=== PATIENT | male | born 1985 | race Two or more races ===

== ENCOUNTER 2018-12-23 14:13 | Emergency (ER) | payer OTHER ==
[2018-12-23 14:23] VITALS: BP 110/80; PULSE 100; TEMP 98.9; BMI 22.6
--- NOTE | 2018-12-23 14:23 | PDOC ---
Rapid Medical Evaluation Time Seen by Provider: 12/23/18 14:20 Medical Evaluation: Allergies Allergy/AdvReac Type Severity Reaction Status Date / Time No Known Allergies Allergy Verified 12/23/18 14:19 12/23/18 14:22 Pt presents to the ED with 2 days of epigastric pain. Admits to associated nausea and vomiting. Exam: TTP of the epigastric area, otherwise soft, non-tender with no rebound or guarding Orders: Abdominal pain work up Pt to proceed to the ED for further evaluation Discharge Disposition - Diagnosis Abdominal pain Qualifiers: Abdominal location: epigastric Qualified Code(s): R10.13 - Epigastric pain - Referrals - Patient Instructions - Post Discharge Activity
[2018-12-23 15:07] LABS: BASO % 0.6 % (0-2.0); EOS % 1.2 % (0-4.5); HEMATOCRIT 44.8 % (35.4-49); HEMOGLOBIN 15.7 GM/dL (11.7-16.9); LYMPH % 18.7 % (8-40); MCH 31.9 pg (25.7-33.7); MCHC 34.9 g/dl (32.0-35.9); MEAN CELL VOLUME 91.2 fl (80-96); MEAN PLT VOLUME 8.6 fl (7.5-11.1); MONO % 11.2 % (3.8-10.2); NEUT % 68.3 % (42.8-82.8); PLATELET COUNT 221 K/MM3 (134-434); RBC 4.91 M/mm3 (4.00-5.60); RDW 13.8 % (11.9-15.9)
[2018-12-23] MEDS ORDERED: MAG HYDROX/AL HYDROX/SIMETH 30 ML UNIT-DOSE CUP PO ONE (15:17)
[2018-12-23] MEDS ORDERED: FAMOTIDINE 20 MG/50 ML IVPB 20 MG/50 ML MG IVPB ONE ×2 (15:17→15:31)
[2018-12-23 15:22] LABS: INR 1.09 (0.83-1.09); PROTHROMBIN TIME (PATIENT) 12.9 SEC (9.7-13.0)
[2018-12-23] MEDS ORDERED: MAG HYDROX/AL HYDROX/SIMETH 30 ML UNIT-DOSE CUP ONE (15:31)
--- NOTE | 2018-12-23 15:37 | PDOC ---
Attending Attestation - Resident Resident Name: David Fernandez - ED Attending Attestation I have performed the following: I have examined & evaluated the patient, The case was reviewed & discussed with the resident, I agree w/resident's findings & plan - HPI HPI: 12/23/18 15:35 33-year-old male with history of dyspepsia/gastritis never on PPI but with endoscopy 2 in the past, last 10 years ago, presents now with 2 days of epigastric pain/burning with nonbloody nonbilious nausea/vomiting 2. No fevers or chills, no melena or bright red blood per rectum, no diet change/excessive alcohol/excessive NSAID's. Travel to the [place] but returned over one month ago, started amoxicillin yesterday for sore throat. - Physicial Exam PE: 12/23/18 15:36 Afebrile, hemodynamically stable Well-appearing, moist mucosa No jaundice or pallor op with tonsillar swelling and exudate, R>L Heart is regular, lungs are clear Abdomen is soft/nondistended, epigastric/supraumbilical discomfort to palpation without guarding or rebound, bowel sounds are normal Bedside ultrasound with no visualized gallstones - Medical Decision Making 12/23/18 15:37 33-year-old male with history of gastritis presents with 2 days of epigastric discomfort/nausea/vomiting, no peritoneal findings on examination, hemodynamically stable. Presentation seems most consistent with exacerbation of dyspepsia/gastritis, possibly in the setting of an underlying viral syndrome. Less likely biliary versus pancreatitis. Labs, EKG IV fluids, antiemetic, antacid Reassess 12/23/18 16:50 labs wnl, no leukocytosis, normal LFT and lipase ua wnl 12/23/18 16:58 markedly improved after meds, tolerating PO, abd pain and tenderness resolved. agrees with d/c plan, understands return criteria. Heart Score/ECG Review #1 ECG reviewed & interpreted by me at: 16:35 General ECG Interpretation: Sinus Rhythm, Normal Rate (85), Normal Intervals ( qtc 418), No acute ischemic changes Discharge Disposition - Diagnosis Strep pharyngitis, Dyspepsia Abdominal pain Qualifiers: Abdominal location: epigastric Qualified Code(s): R10.13 - Epigastric pain - Discharge Dispostion Disposition: HOME Condition at time of disposition: Improved - Prescriptions Prescriptions: Amoxicillin - [Amoxicillin 500mg Capsule -] 1,000 mg PO DAILY #14 capsule - Referrals - Patient Instructions - Post Discharge Activity
[2018-12-23] MEDS ORDERED: ONDANSETRON 4 MG/2 ML VIAL IVPUSH ONE (15:38)
[2018-12-23] MEDS ORDERED: SODIUM CHLORIDE 1,000 ML IV STA (15:39)
[2018-12-23 15:44] LABS: ALBUMIN 3.9 g/dl (3.4-5.0); ALK PHOS 82 U/L (45-117); ANION GAP 5 MMOL/L (8-16); BILIRUBIN,TOTAL 0.4 mg/dL (0.2-1); BLOOD UREA NITROGEN 7 mg/dL (7-18); CALCIUM 9.6 mg/dL (8.5-10.1); CHLORIDE 103 mmol/L (98-107); CO2 29 mmol/L (21-32); CREATININE 0.9 mg/dL (0.55-1.3); GLUCOSE,RANDOM 97 mg/dL (74-106); LIPASE 116 U/L (73-393); POTASSIUM 4.3 mmol/L (3.5-5.1); SGOT/AST 13 U/L (15-37); SGPT/ALT 23 U/L (13-61); SODIUM 138 mmol/L (136-145); TOT PROT 7.6 g/dl (6.4-8.2)
[2018-12-23 16:08] LABS: URINE APPEARANCE CLEAR; URINE BILIRUBIN NEGATIVE (<2.0 mg/dL); URINE COLOR LTYELLOW; URINE GLUCOSE (UA) NEGATIVE (NEGATIVE); URINE KETONE NEGATIVE (NEGATIVE); URINE LEUK ESTERASE NEGATIVE (NEGATIVE); URINE NITRITE NEGATIVE (NEGATIVE); URINE PROTEIN NEGATIVE (NEGATIVE); URINE UROBILINOGEN NEGATIVE mg/dL (0.2-1.0)
[2018-12-23 16:15] LABS: URINE MUCUS RARE
--- NOTE | 2018-12-23 17:00 | PDOC ---
History of Present Illness - General Chief Complaint: Pain, Acute Stated Complaint: ABD PAIN Time Seen by Provider: 12/23/18 14:20 History Source: Patient Exam Limitations: No Limitations - History of Present Illness Initial Comments: 33 yo male pmh of dyspepsia and gastritis (s/p endoscopy over 10 years) presents to the ED with 2 d, 2 episodes NB/NB vomiting 12/23/18 17:17 33-year-old male with history of dyspepsia/gastritis never on PPI but with endoscopy 2 in the past, last 10 years ago, presents now with 2 days of epigastric pain/burning with nonbloody nonbilious nausea/vomiting 2. No fevers or chills, no melena or bright red blood per rectum, no diet change/excessive alcohol/excessive NSAID's. Travel to the [place] but returned over one month ago, started amoxicillin yesterday for sore throat. Past History - Past Medical History Allergies/Adverse Reactions: Allergies Allergy/AdvReac Type Severity Reaction Status Date / Time No Known Allergies Allergy Verified 12/23/18 14:19 Home Medications: Ambulatory Orders Amoxicillin - [Amoxicillin 500mg Capsule -] 1,000 mg PO DAILY #14 capsule COPD: No Other medical history: DENIES. - Suicide/Smoking/Psychosocial Hx Smoking History: Never smoked *Physical Exam - Vital Signs Last Vital Signs Temp Pulse Resp BP Pulse Ox 98.9 F 100 H 19 110/80 99 12/23/18 14:19 12/23/18 14:19 12/23/18 14:19 12/23/18 14:19 12/23/18 14:19 Moderate Sedation - Procedure Monitoring Vital Signs: Procedure Monitoring Vital Signs Temperature 98.9 F 12/23/18 14:19 Pulse Rate 100 H 12/23/18 14:19 Respiratory Rate 19 12/23/18 14:19 Blood Pressure 110/80 12/23/18 14:19 O2 Sat by Pulse Oximetry (%) 99 12/23/18 14:19 ED Treatment Course - LABORATORY CBC & Chemistry Diagram: 12/23/18 14:56 12/23/18 14:56 - ADDITIONAL ORDERS Additional order review: Laboratory Results 12/23/18 12/23/18 14:56 14:56 PT with INR 12.90 INR 1.09 Sodium 138 Potassium 4.3 Chloride 103 Carbon Dioxide 29 Anion Gap 5 L BUN 7 Creatinine 0.9 Creat Clearance w eGFR > 60 Random Glucose 97 Calcium 9.6 Total Bilirubin 0.4 AST 13 L ALT 23 Alkaline Phosphatase 82 Total Protein 7.6 Albumin 3.9 Lipase 116 12/23/18 14:56 RBC 4.91 MCV 91.2 MCHC 34.9 RDW 13.8 MPV 8.6 Neutrophils % 68.3 Lymphocytes % 18.7 Monocytes % 11.2 H Eosinophils % 1.2 Basophils % 0.6 - Medications Given in the ED: ED Medications Discontinued Medications Generic Name Dose Route Start Last Admin Trade Name Beto PRN Reason Stop Dose Admin Al Hydroxide/Mg Hydroxide 30 ml 12/23/18 15:17 12/23/18 15:38 Mylanta Oral Suspension - PO 12/23/18 15:18 30 ml ONCE ONE Administration Famotidine/Sodium Chloride 20 mg in 50 mls @ 100 mls/hr 12/23/18 15:17 15:38 Pepcid 20 Mg Premixed Ivpb - IVPB 12/23/18 15:46 100 mls/hr ONCE ONE Administration Ondansetron HCl 4 mg 12/23/18 15:38 12/23/18 15:40 Zofran Injection IVPUSH 12/23/18 15:39 4 mg ONCE ONE Administration *DC/Admit/Observation/Transfer Diagnosis at time of Disposition: Strep pharyngitis, Dyspepsia Abdominal pain Qualifiers: Abdominal location: epigastric Qualified Code(s): R10.13 - Epigastric pain - Discharge Dispostion Disposition: HOME Condition at time of disposition: Improved - Prescriptions Prescriptions: Amoxicillin - [Amoxicillin 500mg Capsule -] 1,000 mg PO DAILY #14 capsule - Referrals Referrals: Alfa Chairez DO [Staff Physician] - - Patient Instructions Printed Discharge Instructions: DI for Strep Throat, DI for Dyspepsia Additional Instructions: Please make an appointment with your Primary care doctor within the next 48 hours. Take the antibiotic Amoxacillin as prescribed which was sent to your pharmacy. Take over the counter Pepcid for your dyspepsia as needed. Call Dr. Chairez in GI for a follow up appointment, the office is expecting your call. Return to the emergency room for new or concerning symptoms including but not limited to: high fevers, inability to eat or drink, severe abdominal pain. Thank you. - Post Discharge Activity
--- NOTE | 2018-12-24 09:53 | EKG ---
Test Reason : Blood Pressure : / mmHG Vent. Rate : 085 BPM Atrial Rate : 085 BPM P-R Int : 138 ms QRS Dur : 090 ms QT Int : 352 ms P-R-T Axes : 068 045 030 degrees QTc Int : 418 ms NORMAL SINUS RHYTHM NORMAL ECG NO PREVIOUS ECGS AVAILABLE Confirmed by ELLIE HAYDEN, SOL ([id number]) on 12/24/2018 9:52:41 AM Referred By: Confirmed By:SOL ARGUETA MD
== END 2018-12-23 17:17 | disposition home or self-care (01) ==
LOC: JER 14:13
PROC: 3E0337Z Introduction of Electrolytic and Water Balance Substance into Peripheral Vein, Percutaneous Approach (ICD-10-PCS; principal; 2018-12-23)
PROC: 3E033GC Introduction of Other Therapeutic Substance into Peripheral Vein, Percutaneous Approach (ICD-10-PCS; 2018-12-23)
PROC: 3E033GC Introduction of Other Therapeutic Substance into Peripheral Vein, Percutaneous Approach (ICD-10-PCS; 2018-12-23)
DX: R10.13 Epigastric pain (principal); J02.0 Streptococcal pharyngitis; B95.5 Unspecified streptococcus as the cause of diseases classified elsewhere
CPT/HCPCS: 36415; 80053; 81003; 81015; 83690; 85025; 85610; 87086; 93005; 93010; 99283-25; J7030